=== PATIENT | female | born 1955 | race African-American/Black ===

== ENCOUNTER 2018-10-30 04:30 | Emergency (ER) | payer MEDICARE, OTHER ==
[~2018-10-30] VITALS: Ht 167.6 cm; Wt 62.6 kg
--- NOTE | 2018-10-30 04:45 | NUR ---
ED Nurse Note: Patient walked in to ER c/o bilaterally pain in her wrists. AAOP x4, VSS at this time, skin is dry, intact.
[2018-10-30 04:49] VITALS: BP 197/93
[2018-10-30] MEDS ORDERED: HYDROCODON-ACE1 EA15 ORAL (05:10)
[2018-10-30] MEDS ORDERED: IBUPROFEN600 MG ORAL (05:10)
--- NOTE | 2018-10-30 05:10 | Emergency Room Report ---
History of Present Illness General Chief Complaint: Pain Source: Patient, Significant Other Present Illness HPI Is a 63-year-old female with a history of diabetes but no longer medication. She also has long-standing neuropathy with numbness to her fingers. Mostly on the left side. She presents with chief complaint of increasing hand pain and numbness. This been ongoing for about a week. No trauma. No fever chills but no nausea no vomiting. Nothing made it better. Nothing made it worse. Allergies: Coded Allergies: PENICILLINS (Verified Allergy, Unknown, 10/30/18) Patient History Past Medical History: see triage record, old chart reviewed, DM, HTN Past Surgical History: other Pertinent Family History: none Social History: Reports: smoking Now: No Immunizations: other Reviewed Nursing Documentation: PMH: Agreed; PSxH: Agreed Nursing Documentation-PM Past Medical History: No Stated History Hx Hypertension: Yes Hx Diabetes: Yes Review of Systems Eye: Denies: eye pain, blurred vision ENT: Denies: ear pain, nose congestion, throat swelling Respiratory: Denies: cough, shortness of breath Cardiovascular: Denies: chest pain, palpitations Gastrointestinal: Denies: abdominal pain, diarrhea, nausea, vomiting Musculoskeletal: Denies: back pain, joint pain Skin: Denies: rash Neurological: Denies: headache, numbness Endocrine: Denies: increased thirst, increased urine Hematologic/Lymphatic: Denies: easy bruising All Other Systems: negative except mentioned in HPI Physical Exam Vital Signs Date Time Temp Pulse Resp B/P (MAP) Pulse Ox O2 Delivery O2 Flow Rate FiO2 10/30/18 04:33 98.2 63 16 197/93 100 Room Air vitals with high blood pressure Sp02 EP Interpretation: reviewed, normal General Appearance: well appearing, no apparent distress, alert Head: normocephalic, atraumatic Eyes: bilateral eye PERRL, bilateral eye EOMI ENT: hearing grossly normal, normal pharynx Neck: full range of motion, supple, no meningismus Respiratory: chest non-tender, lungs clear, normal breath sounds Cardiovascular #1: regular rate, rhythm, no murmur Gastrointestinal: normal bowel sounds, non tender, no mass, no organomegaly, no bruit, non-distended Musculoskeletal: back normal, gait/station normal, normal range of motion Psychiatric: mood/affect normal Skin: warm/dry Medical Decision Making Diagnostic Impression: Primary Impression: Peripheral neuropathy Additional Impression: Hypertension Qualified Codes: I10 - Essential (primary) hypertension ER Course Patient present with neuropathy. No evidence of any trauma. She has no chest pain complaint. We'll discharge home. Last Vital Signs Date Time Temp Pulse Resp B/P (MAP) Pulse Ox O2 Delivery O2 Flow Rate FiO2 10/30/18 04:49 98.2 16 197/93 100 Room Air 10/30/18 04:33 63 Status: improved Disposition: HOME, SELF-CARE Condition: Stable Scripts Ibuprofen* (MOTRIN*) 600 Mg Tablet 600 MG ORAL THREE TIMES A DAY, #30 TAB 0 Refills Prov: Jairon Kovacs MD 10/30/18 Hydrocodone/Acetaminophen 5-325* (HYDROCODONE/ACETAMINOPHEN 5-325*) 1 Each Tablet 1 TAB ORAL Q6H PRN for For Pain, #15 TAB 0 Refills Prov: Jairon Kovacs MD 10/30/18 Referrals: NOT CHOSEN IPA/,REFERRING (PCP) Additional Instructions: Follow-up with your doctor in 7 days. Return if symptom worsen. Jairon Kovacs MD October 30, 2018 05:10
[2018-10-30 05:15] VITALS: BP 197/93
[2018-10-30] MEDS ORDERED: HYDROcodone/Acetamin 5/325 tab ORAL ONE (05:15)
--- NOTE | 2018-10-30 05:15 | NUR ---
ED Nurse Note: Pt cleared by health care Provider for discharge. DC instructions/prescription was given and explained to pt and verbalized understanding of teachings. All medical deviecs such as ID band removed. Pt is AAO x4, ambulatory and left with all personal belongings.
== END 2018-10-30 05:15 | disposition home or self-care (01) ==
LOC: EMR 04:58
DX: G62.9 Polyneuropathy, unspecified (principal); I10 Essential (primary) hypertension; E11.9 Type 2 diabetes mellitus without complications; Z88.0 Allergy status to penicillin
CPT/HCPCS: 99282

== ENCOUNTER 2018-12-03 10:35 | Emergency (ER) | payer MEDICARE, OTHER ==
[~2018-12-03] VITALS: Ht 167.6 cm; Wt 63.0 kg
[~2018-12-03 10:35] MED LIST: HYDROCODON-ACE1 EA15 ORAL; IBUPROFEN600 MG ORAL
[2018-12-03] MEDS ORDERED: TRAMADOL HCL50 MG ORAL (10:59)
[2018-12-03] MEDS ORDERED: BENAZEPRIL HCL10 MG ORAL (10:59)
[2018-12-03] MEDS ORDERED: ATENOLOL25 MG ORAL (10:59)
[2018-12-03] MEDS ORDERED: GABAPENTIN800 MG ORAL (10:59)
[2018-12-03] MEDS ORDERED: AMLODIPINE BESY10 MG ORAL (10:59)
[2018-12-03] MEDS ORDERED: ATORVASTATIN CA40 MG ORAL (10:59)
--- NOTE | 2018-12-03 11:05 | NUR ---
ED Nurse Note: PT WALKED IN TO ER TODAY FROM HOME. AOX4. PT C/O BILATERAL HAND PAIN, 8/10, NUMBNESS, AND TINGLING X LAST NIGHT. PT STATES SHE HAS HX OF CHRONIC HAND NEUROPATHY AND IS CURRENTLY TAKING MEDICATIONS FOR IT. CIRCULATION AND SENSATION INTACT, CAP REFILL <3 SECONDS, FULL ROM OF ALL DIGITS, MUSCLE STRENGTH 5/5.
[2018-12-03 11:07] VITALS: BP 154/78
[2018-12-03] MEDS ORDERED: GABAPENTIN400 MG ORAL ×2 (12:07)
--- NOTE | 2018-12-03 12:35 | NUR ---
ED Nurse Note: PT SITTING PEACEFULLY IN CHAIR IN NAD. AOX4. PRESCRIPTION AND DISCHARGE PAPERWORK EXPLAINED TO PT. PT VERBALIZES UNDERSTANDING AND ALL QUESTIONS ANSWERED. PRESCRIPTION SENT ELECTRONICALLY TO PT'S PHARMACY. DISCHARGE PAPERWORK GIVEN TO PT AND ID WRISTBAND REMOVED. PT WALKED OUT OF ER WITH STEADY GAIT AND ALL BELONGINGS.
[2018-12-03 12:36] VITALS: BP 152/80
--- NOTE | 2018-12-04 20:21 | Emergency Room Report ---
History of Present Illness General Chief Complaint: Pain Source: Patient Present Illness HPI Patient is a 63-year-old female presented after increased pain to both wrists. Patient reports having gradual onset of pain. She reports having numbness to both hands. She states this is been going on for quite a long time. Patient reportedly is taking multiple medications for discomfort. She has been noted to be using a wrist splint to her left upper extremity. She had not been using any to her right. Patient had previous point for carpal tunnel release. She states that she is not currently a smoker. She denies prior history of hypothyroidism. She denies any fever. She denies any recent trauma. She reports having increased pain after waking up. Allergies: Coded Allergies: PENICILLINS (Verified Allergy, Unknown, 10/30/18) Patient History Past Medical History: see triage record Reviewed Nursing Documentation: PMH: Agreed; PSxH: Agreed Nursing Documentation-PMH Past Medical History: No History, Except For Hx Hypertension: Yes Hx Diabetes: Yes Review of Systems All Other Systems: negative except mentioned in HPI Physical Exam Vital Signs Date Time Temp Pulse Resp B/P (MAP) Pulse Ox O2 Delivery O2 Flow Rate FiO2 12/03/18 10:51 98.2 74 16 160/84 (109) 99 Room Air General Appearance: well appearing, no apparent distress, alert, GCS 15 Head: normocephalic, atraumatic ENT: hearing grossly normal, normal voice Neck: full range of motion, supple Respiratory: no respiratory distress, speaking full sentences Cardiovascular #1: normal inspection Gastrointestinal: normal inspection Musculoskeletal: no calf tenderness Neurologic: normal inspection, alert, oriented x3, web machine tender III-XII nml as tested, normal gait, motor weakness - Bilateral thenar muscle weakness., other - Bilateral hand numbness in a median nerve distribution Psychiatric: mood/affect normal Skin: no rash Medical Decision Making Diagnostic Impression: Primary Impression: Carpal tunnel syndrome ER Course . She presented for bilateral wrist pain. Differential diagnosis include was not limited to arthritis, carpal tunnel syndrome, peripheral neuropathy among others. Patient has a benign exam and does not appear to require any further imaging or laboratory testing at this time. Patient was noted to have what appears to be some chronic discomfort to both upper extremities. She in the past have been told that she had carpal tunnel disease and this appears to be a recurrent problem. Patient was noted to have some decreased sensation bilaterally in the median nerve distribution. No thenar muscle atrophy. Patient was given an additional wrist splint. Patient was noted to have prior wrist splint to her left upper extremity. Patient was advised to follow-up with her primary care physician for recheck. Last Vital Signs Date Time Temp Pulse Resp B/P (MAP) Pulse Ox O2 Delivery O2 Flow Rate FiO2 12/03/18 12:36 98.3 76 18 152/80 100 Room Air Status: unchanged Disposition: HOME, SELF-CARE Condition: Stable Scripts Gabapentin* (GABAPENTIN*) 400 Mg Capsule 400 MG ORAL THREE TIMES A DAY, #30 CAP 0 Refills Prov: Partha Lara MD 12/03/18 Referrals: Aleksandar Selby MD (PCP) Patient Instructions: Carpal Tunnel Syndrome Partha Lara MD Dec 04, 2018 20:21
== END 2018-12-03 12:37 | disposition home or self-care (01) ==
LOC: EMR 11:32
DX: M25.542 Pain in joints of left hand (principal); G56.00 Carpal tunnel syndrome, unspecified upper limb; G62.9 Polyneuropathy, unspecified
CPT/HCPCS: 99282

== ENCOUNTER 2019-03-30 10:19 | Emergency (ER) | payer MEDICARE, OTHER ==
[~2019-03-30] VITALS: Ht 167.6 cm; Wt 71.2 kg
[~2019-03-30 10:19] MED LIST changes: +AMLODIPINE BESY10 MG ORAL; +ATENOLOL25 MG ORAL; +ATORVASTATIN CA40 MG ORAL; +BENAZEPRIL HCL10 MG ORAL; +GABAPENTIN400 MG ORAL; +GABAPENTIN800 MG ORAL; +TRAMADOL HCL50 MG ORAL
--- NOTE | 2019-03-30 10:50 | NUR ---
ED Nurse Note: PT WALKED IN TO ER TODAY FROM HOME. AOX4. PT C/O CHRONIC LOWER BACK PAIN AND CARPAL TUNNEL PAIN. PT STATES SHE IS SEEING HER PRIMARY FOR PAIN MANAGEMENT BUT RAN OUT OF HER PAIN MEDICATION.
[2019-03-30 10:52] VITALS: BP 132/76
[2019-03-30] MEDS ORDERED: HYDROcodone/Acetamin 5/325 tab ORAL ONE (11:00)
[2019-03-30] MEDS ORDERED: Ketorolac 30mg Inj IM ONE (11:00)
[2019-03-30] MEDS ORDERED: TRAMADOL HCL50 MG ORAL (11:04)
[2019-03-30 11:07] VITALS: BP 128/74
--- NOTE | 2019-03-30 11:07 | NUR ---
Note karma in EDM - 03/30/19 at 1108 by RYAN ED Nurse Note: PT SITTING PEACEFULLY IN BED IN NAD. AOX4. PRESCRIPTIONS AND DISCHARGE PAPERWORK EXPLAINED TO PT. PT VERBALIZES UNDERSTANDING AND ALL QUESTIONS ANSWERED. PRESCRIPTIONS AND DISCHARGE PAPERWORK GIVEN TO PT AND ID WRISTBAND REMOVED. PT WALKED OUT OF ER WITH STEADY GAIT AND ALL BELONGINGS.
--- NOTE | 2019-03-30 11:07 | Emergency Room Report ---
History of Present Illness General Chief Complaint: Medication Refill Source: Patient Present Illness HPI Disclaimer: Please note that this report is being documented using [employer] technology. This can lead to erroneous entry secondary to incorrect interpretation by the dictating instrument. HPI: 63-year-old female with a history of chronic lumbosacral disc disease and chronic back pain, bilateral carpal tunnel syndrome presents for medication refill request. Patient states her back pain and wrist pain are unchanged and at their baseline. There is no new injury. She describes an aching back pain in the center of the back that does not radiate, denies urinary retention, denies fecal incontinence, denies lower extremity weakness and is able to ambulate at her baseline. She is scheduled for an MRI next week and possible preparation for surgery. Additionally, she has had carpal tunnel for years and notes chronic pain in the wrist as well as a burning sensation over the palms which is consistent with her disease. She is currently undergoing physical therapy for this. She is treated with 50 mg Ultram and states that she ran out of her prescription yesterday. She was unable to see her PMD until later in the month and is requesting a small prescription to get her through until she can see her PMD. She states she only uses them as needed. Denies any other symptoms or concerns at this time. PMH: Carpal tunnel, chronic back pain, hypertension PSH: See chart Allergies: Penicillin Social Hx: Denies drug or alcohol abuse Allergies: Coded Allergies: PENICILLINS (Verified Allergy, Unknown, 10/30/18) Nursing Documentation-PMH Hx Hypertension: Yes - hyperlipidemia Hx Diabetes: Yes Review of Systems All Other Systems: negative except mentioned in HPI Physical Exam Vital Signs Date Time Temp Pulse Resp B/P (MAP) Pulse Ox O2 Delivery O2 Flow Rate FiO2 03/30/19 10:33 98.1 70 15 136/80 (98) 97 Room Air General: Awake and alert, no acute distress HEENT: NC/AT. EOMI. Resp: Normal work of breathing Skin: Intact. No abrasions, laceration or rash over the exposed skin MSK: Normal tone and bulk. Moving all extremities. No obvious deformity. Tenderness on percussion of the volar aspect of the wrist bilaterally. No deformity. Mild limitation on flexion and extension secondary to pain but no effusion around the wrist joints. Able to flex and extend all digits of the hands. Neuro: Awake and alert. Mentating appropriately. Back/Spine: No midline tenderness in the cervical, thoracic spine. Tenderness in the lumbosacral region, no step-off, no deformity. Moderate paraspinal tenderness in the lower back Medical Decision Making Diagnostic Impression: Primary Impression: Carpal tunnel syndrome Additional Impressions: Medication refill Chronic back pain ER Course This is 63-year-old female who presents requesting a short-term prescription for Ultram to treat her chronic lower back pain and her carpal tunnel pain. Patient is in no acute distress, no new injury, physical exam is reassuring. She is calm and polite. Cures report shows regular refills monthly for Ultram 50 mg prescribed by her doctor. Last refill was 02/19/2019 for a 30-day prescription. This is consistent with her treatment schedule. She has not filled any narcotic pain medication available on the cures website since 02/19. She continues to use ibuprofen. We will give her a short prescription for 10 tablets but she is to call her PMD and her neurologist to discuss medication refills further. We discussed that the emergency department does not regularly fill chronic pain medication and that she would need to go to her PMD next time. She verbalized understanding and agreement with this treatment plan was discharged home. Last Vital Signs Date Time Temp Pulse Resp B/P (MAP) Pulse Ox O2 Delivery O2 Flow Rate FiO2 03/30/19 10:52 98.2 72 16 132/76 99 Room Air Disposition: HOME, SELF-CARE Condition: Stable Scripts Tramadol Hcl* (ULTRAM*) 50 Mg Tablet 50 MG ORAL Q6H PRN for For Pain, #10 TAB 0 Refills Prov: Tae Samano MD 03/30/19 Referrals: [facility] Patient Instructions: Medicine Refill at the Emergency Department Additional Instructions: Your evaluated in the emergency department today for back and wrist pain. Please see your doctor at the next available appointment to refill your chronic pain medications. Short course has been prescribed to you until you can see your doctor. Please follow-up on the MRI and with your neurologist to discuss emergency department visit. Follow-up with your PMD as soon as possible for medication refill and reevaluation. Return to the emergency department with any new or worsening symptoms. Tae Samano MD Mar 30, 2019 11:07
--- NOTE | 2019-03-30 11:07 | NUR ---
ED Nurse Note: PT SITTING PEACEFULLY IN BED IN NAD. AOX4. PRESCRIPTIONS AND DISCHARGE PAPERWORK EXPLAINED TO PT. PT VERBALIZES UNDERSTANDING AND ALL QUESTIONS ANSWERED. PRESCRIPTIONS AND DISCHARGE PAPERWORK GIVEN TO PT AND ID WRISTBAND REMOVED. PT WALKED OUT OF ER WITH STEADY GAIT AND ALL BELONGINGS ACCOMPANIED BY DAUGHTER.
== END 2019-03-30 11:09 | disposition home or self-care (01) ==
LOC: EMR 11:05
DX: G56.00 Carpal tunnel syndrome, unspecified upper limb (principal); G89.29 Other chronic pain; M54.9 Dorsalgia, unspecified; Z76.0 Encounter for issue of repeat prescription; E78.5 Hyperlipidemia, unspecified; E11.9 Type 2 diabetes mellitus without complications; Z88.0 Allergy status to penicillin; I10 Essential (primary) hypertension
CPT/HCPCS: 96372; 99283; J1885

== ENCOUNTER 2019-04-17 13:43 | Emergency (ER) | payer MEDICARE, OTHER ==
[~2019-04-17] VITALS: Ht 166.4 cm; Wt 72.6 kg
[2019-04-17 13:52] VITALS: BP 142/85
--- NOTE | 2019-04-17 14:08 | NUR ---
Note karma in EDM - 04/17/19 at 1412 by MAHI ED Nurse Note: Pt walked in to ED from home c/o pain on left lower leg for couple days. Denies injury/trauma on left leg, no visible signs of swelling/redness, no open wounds noted. Denies SOB. VSS
--- NOTE | 2019-04-17 14:12 | NUR ---
ED Nurse Note: Pt walked in to ED from home c/o pain on right lower leg for couple days. Denies injury/trauma on right leg, no visible signs of swelling/redness, no open wounds noted. Denies SOB. VSS
[2019-04-17] MEDS ORDERED: Tylenol #3 tab (300mg/30mg) ORAL ONE (14:30)
--- NOTE | 2019-04-17 14:49 | Emergency Room Report ---
History of Present Illness General Chief Complaint: Lower Extremity Injury Source: Medical Record Present Illness HPI * 63 YO Female presents to the ED c/o 04/09 in severity Right calf pain. Denies trauma or fall. Denies fevers, chills, bruises, open wounds or skin color changes. Allergies: Coded Allergies: PENICILLINS (Verified Allergy, Unknown, 10/30/18) Patient History Past Medical History: see triage record Past Surgical History: none Pertinent Family History: none Now: No Reviewed Nursing Documentation: PMH: Agreed; PSxH: Agreed Nursing Documentation-PMH Past Medical History: No History, Except For Hx Hypertension: Yes - hyperlipidemia Hx Diabetes: Yes Review of Systems All Other Systems: negative except mentioned in HPI Physical Exam Vital Signs Date Time Temp Pulse Resp B/P (MAP) Pulse Ox O2 Delivery O2 Flow Rate FiO2 04/17/19 13:52 98.1 83 18 142/85 (104) 98 Room Air Sp02 EP Interpretation: reviewed, normal General Appearance: no apparent distress, alert, GCS 15, non-toxic Head: normocephalic, atraumatic Eyes: bilateral eye normal inspection, bilateral eye PERRL ENT: hearing grossly normal, normal voice Neck: full range of motion Respiratory: chest non-tender, lungs clear, normal breath sounds, speaking full sentences Cardiovascular #1: regular rate, rhythm, normal capillary refill Cardiovascular #2: 2+ dorsalis pedis (R), 2+ dorsalis pedis (L) Musculoskeletal: gait/station normal, normal range of motion, tender - Right calf ttp, no swelling Neurologic: alert, oriented x3, responsive, motor strength/tone normal, sensory intact, speech normal, grossly normal Psychiatric: judgement/insight normal Skin: no rash Lymphatic: no adenopathy Medical Decision Making PA Attestation Dr. Durham is my supervising Physician whom patient management has been discussed with. Diagnostic Impression: Primary Impression: Acute leg pain Qualified Codes: M79.604 - Pain in right leg ER Course Pt. presents to the ED c/o lower extremity pain x2 days, unilateral swelling, erythema, increase in temperature. Pt recently s/p slip and fall and has been mainly bed ridden. Ddx considered but are not limited to Cellulitis, DVT, varicose vein, PAD, Venous insufficiency Vital signs: are WNL, pt. is afebrile H&PE are most consistent with [ ] ORDERS: LE duplex U/s to R/O dvt. ED INTERVENTIONS: -Tylenol # 3 DISCHARGE: At this time pt. is stable for d/c to home. Will provide printed patient care instructions, and any necessary prescriptions. Care plan and follow up instructions have been discussed with the patient prior to discharge. CT/MRI/US Diagnostic Results CT/MRI/US Diagnostic Results : Imaging Test Ordered: Venous Duplex US of the right LE Last Vital Signs Date Time Temp Pulse Resp B/P (MAP) Pulse Ox O2 Delivery O2 Flow Rate FiO2 04/17/19 13:52 98.1 83 18 142/85 (104) 98 Room Air Disposition: HOME, SELF-CARE Condition: Stable Referrals: [facility] Patient Instructions: Pain Medicine Instructions, [id number] Additional Instructions: ~ ~ An emergent medical condition has not been identified based on this patients presentation, exam and any necessary testing/imaging. The patient is determined to be stable for outpatient follow-up and management of symptoms by a primary care provider. Take any previously prescribed medications as directed. Follow up with a Primary Care Provider in 3-5 days, even if your symptoms have resolved. --Please review list of primary care clinics, if you do not already have a primary care provider Return sooner to ED if new symptoms occur, or current symptoms become worse. - Please note that this Emergency Department Report was dictated using [employer] processing specialist technology software, occasionally this can lead to erroneous entry secondary to interpretation by the dictation equipment. Sandy Earl Apr 17, 2019 14:49
--- NOTE | 2019-04-17 14:55 | NUR ---
ED Nurse Note: Vascular clinical lab assistant a bedside for venous duplex.
--- NOTE | 2019-04-17 15:00 | NUR ---
ED Nurse Note: Venous duplex results given to ERMD.
--- NOTE | 2019-04-17 15:28 | Diagnostic Imaging Report ---
Indication:Leg pain and swelling Technique: Grayscale and duplex Doppler imaging of the veins in right lower extremity performed in real time utilizing compression and augmentation. Comparison: None Findings: Duplex Doppler interrogation of the veins in right lower extremity is performed from the common femoral vein to the popliteal vein. Normal venous compressibility demonstrated throughout. No thrombus identified. Waveform analysis shows good respiratory phasicity and augmentation. Imaged calf vein are also patent. IMPRESSION: No evidence of deep venous thrombosis.
--- NOTE | 2019-04-17 15:40 | NUR ---
ER DISCHARGE NOTE: Pt is cleared to be discharged per ERMD, pt is aox4, on room air. Pt refused to sign dc instructions and refused prescription. Pt was ambulatory with steady gait, left with all belongings.
[2019-04-17] MEDS ORDERED: TYLENOL EXTRA500 MG ORAL (15:43)
== END 2019-04-17 15:40 | disposition home or self-care (01) ==
LOC: EMR 15:05
DX: M79.604 Pain in right leg (principal); E78.5 Hyperlipidemia, unspecified; E11.9 Type 2 diabetes mellitus without complications; Z88.0 Allergy status to penicillin
CPT/HCPCS: 93971; 99284

== ENCOUNTER 2020-02-04 18:02 | Inpatient (IN) | payer MEDICARE, OTHER ==
[~2020-02-04] VITALS: Ht 167.6 cm; Wt 75.7 kg
[~2020-02-04 18:02] MED LIST changes: +TYLENOL EXTRA500 MG ORAL
--- NOTE | 2020-02-04 18:31 | NUR ---
ED Nurse Note: Pt ambulated to ED from home d/t nausea and vomiting with low back pain for 3 days. Pt is AOx4, VSS, on RA, afebrile on triage. Placed on bed, no acute distress noted. Will continue to monitor.
[2020-02-04 18:33] VITALS: BP 137/87
--- NOTE | 2020-02-04 18:34 | Emergency Room Report ---
History of Present Illness General Chief Complaint: Vomiting Source: Patient Present Illness HPI Patient presents with back pain and vomiting for 3 days. She denies any diarrhea. She cannot keep down liquids at this time. Denies fevers or chills. There is no dysuria. She denies numbness down her legs. She states she has chronic back pain for which she takes tramadol. She not been able to take this for several days. Does not believe that she ate anything unusual. No vomiting blood or coffee grounds. She is having difficulty keeping down water at this time. She says this is happened to her multiple times before. She was admitted [facility] last month. She states someone mentioned about her white cells being elevated. She denies any previous cardiac problems. No sore throat, chest pain, palpitations, diarrhea, dysuria, abdominal pain, shortness of breath, rashes, depression, anxiety, visual changes, dizziness, headache. Allergies: Coded Allergies: PENICILLINS (Verified Allergy, Unknown, 10/30/18) COVID-19 Screening Contact w/high risk pt: No Experienced COVID-19 symptoms?: No COVID-19 Testing performed TAPE CALENDER: Yes - 01/13/2020 COVID-19 Screening: Negative COVID-19 COVID-19 Testing Source: oral Patient History Past Medical History: see triage record Pertinent Family History: other - persistent vomiting Social History: Denies: smoking Social History Narrative from home Reviewed Nursing Documentation: PMH: Agreed; PSxH: Agreed Nursing Documentation-PM Past Medical History: No History, Except For Hx Hypertension: Yes Hx Diabetes: Yes Review of Systems All Other Systems: negative except mentioned in HPI Physical Exam Vital Signs Date Time Temp Pulse Resp B/P (MAP) Pulse Ox O2 Delivery O2 Flow Rate FiO2 02/04/20 18:07 98.1 128 16 137/87 (104) 100 Room Air Sp02 EP Interpretation: reviewed, normal General Appearance: well appearing, no apparent distress, GCS 15, other - Unable to stop vomiting Head: normocephalic Eyes: bilateral eye normal inspection, bilateral eye PERRL, bilateral eye EOMI ENT: moist mucus membranes Neck: supple Respiratory: lungs clear, normal breath sounds Cardiovascular #1: no edema, tachycardia Cardiovascular #2: 2+ radial (R) Gastrointestinal: normal inspection, non tender, no mass, non-distended, decreased bowel sounds Genitourinary: no CVA tenderness Musculoskeletal: normal range of motion, gait/station normal, tender, other - Straight leg raise bilaterally normal Neurologic: alert, oriented x3, grossly normal Psychiatric: mood/affect normal - Slightly depressed Skin: no rash, warm/dry, normal turgor Procedures Critical Care Time Critical Care Time Total Critical Care Time: 30 min bedside evaluation and treatment excludes procedures (EKG). Reason for critical care: NSTEMI, leukocytosis, repeat evaluations, evaluation for COVID-19 Possible complications: hypotension, hypertension, MS, shock, arrhythmias, metabolic acidosis, end organ damage, respiratory failure. Interventions: Reglan, Benadryl, morphine, aspirin, Nitropaste, metoprolol, Lovenox, repeat evaluations Course: Patient presented with which she stated was recurrent problem of back pain and vomiting. Lap brian with leukocytosis. Antibiotics and CT ordered. Lab called with positive troponin. Low potassium treated. Review of EKG and discussion with patient findings. COVID-[address] nonsurgical. Addition of Lovenox. Consultations: nursing staff, admitting physician, lab Performed by: Dr. Laughlin Tolerated well condition = serious Medical Decision Making Diagnostic Impression: Primary Impression: NSTEMI (non-ST elevated myocardial infarction) Additional Impressions: Nausea & vomiting Qualified Codes: R11.2 - Nausea with vomiting, unspecified Leukocytosis Qualified Codes: D72.829 - Elevated white blood cell count, unspecified Chronic back pain Qualified Codes: M54.5 - Low back pain; G89.29 - Other chronic pain Hiatal hernia COVID-19 ruled out Hypokalemia ER Course Patient presents with intractable vomiting with lower back pain. Differential includes acute myocardial infarction, gastritis, esophagitis, gastroenteritis, pancreatitis, electrolyte imbalance amongst others. Evaluation with EKG, chest x-ray and labs. Abdomen is nonsurgical and she says this is a recurrent problem therefore imaging is not indicated at this time. Patient treated with IV hydration, Reglan, Benadryl and morphine. Patient placed on a cardiac specialist as she is tachycardic. WBC reported the ED. Abdomen is fairly soft. Still CT abdomen pelvis ordered. 1917 Lab with + troponin. ASA, metoprolol and nitroglycerine ordered. Low potassium treated. Patient tested COVID neg. Lovenox administered. Patient improved with treatment. Admitted stepdown unit. Laboratory Tests Test 8/6/20 18:40 White Blood Count 22.6 K/UL (4.8-10.8) *H Red Blood Count 4.65 M/UL (4.20-5.40) Hemoglobin 14.6 G/DL (12.0-16.0) Hematocrit 43.8 % (37.0-47.0) Mean Corpuscular Volume 94 FL (80-99) Mean Corpuscular Hemoglobin 31.5 PG (27.0-31.0) H Mean Corpuscular Hemoglobin Concent 33.4 G/DL (32.0-36.0) Red Cell Distribution Width 12.6 % (11.6-14.8) Platelet Count 486 K/UL (150-450) H Mean Platelet Volume 5.7 FL (6.5-10.1) L Neutrophils (%) (Auto) % (45.0-75.0) Lymphocytes (%) (Auto) % (20.0-45.0) Monocytes (%) (Auto) % (1.0-10.0) Eosinophils (%) (Auto) % (0.0-3.0) Basophils (%) (Auto) % (0.0-2.0) Differential Total Cells Counted 100 Neutrophils % (Manual) 80 % (45-75) H Lymphocytes % (Manual) 16 % (20-45) L Monocytes % (Manual) 4 % (1-10) Eosinophils % (Manual) 0 % (0-3) Basophils % (Manual) 0 % (0-2) Band Neutrophils 0 % (0-8) Platelet Estimate Adequate Platelet Morphology Normal Red Blood Cell Morphology Normal Prothrombin Time 11.1 SEC (9.30-11.50) Prothrombin Time INR 1.0 (0.9-1.1) Activated Partial Thromboplast Time 27 SEC (23-33) Sodium Level 141 MMOL/L (136-145) Potassium Level 3.2 MMOL/L (3.5-5.1) L Chloride Level 100 MMOL/L (98-107) Carbon Dioxide Level 30 MMOL/L (21-32) Anion Gap 11 mmol/L (5-15) Blood Urea Nitrogen 13 mg/dL (7-18) Creatinine 1.2 MG/DL (0.55-1.30) Estimated Glomerular Filtration Rate 54.9 mL/min (>60) Glucose Level 196 MG/DL (74-106) H Calcium Level 10.5 MG/DL (8.5-10.1) H Total Bilirubin 0.9 MG/DL (0.2-1.0) Aspartate Amino Transferase (AST) 29 U/L (15-37) Alanine Aminotransferase (ALT) 25 U/L (12-78) Alkaline Phosphatase 134 U/L (46-116) H Troponin I 3.649 ng/mL (0.000-0.056) Total Protein 9.7 G/DL (6.4-8.2) H Albumin 5.2 G/DL (3.4-5.0) H Globulin 4.5 g/dL Albumin/Globulin Ratio 1.2 (1.0-2.7) Lipase 85 U/L (73-393) Microbiology Date/Time Source Procedure Growth Status 02/04/20 19:30 Nasopharynx SARS-CoV-2 RdRp Gene Assay - Final Complete EKG Diagnostic Results Rate: tachycardiac Rhythm: NSR ST Segments: no acute changes Rhythm Strip Diag. Results EP Interpretation: yes Rhythm: no PVC's, no ectopy, other - Tachycardia Chest X-Ray Diagnostic Results Chest X-Ray Diagnostic Results : Chest X-Ray Ordered: Yes # of Views/Limited/Complete: 1 View Indication: Other EP Interpretation: Yes Interpretation: no consolidation, no effusion, no pneumothorax Impression: No acute disease Electronically Signed by: Electronically signed by Marcial Laughlin MD CT/MRI/US Diagnostic Results CT/MRI/US Diagnostic Results : Imaging Test Ordered: Abdomen and pelvis Impression Small sliding hiatal hernia and mild mucosal thickening in the distal esophagus which can be seen in setting of esophagitis. Last Vital Signs Date Time Temp Pulse Resp B/P (MAP) Pulse Ox O2 Delivery O2 Flow Rate FiO2 02/05/20 00:00 Room Air 02/05/20 00:00 98.7 105 18 158/95 (116) 98 Status: improved Disposition: ADMITTED INPATIENT Condition: Serious Marcial Laughlin MD Feb 04, 2020 18:34
[2020-02-04] MEDS ORDERED: DiphenhydrAMINE 50mg/ml Inj IVP ONE (18:45)
[2020-02-04] MEDS ORDERED: Morphine Sulfate 4mg/ml Inj (IV USE ONLY) IVP ONE (18:45)
[2020-02-04] MEDS ORDERED: Metoclopramide 10mg/2ml Inj IVP ONE (18:45)
[2020-02-04] MEDS ORDERED: Omnipaque-300 100ml vial INJ PRN ×2 (18:45→19:30)
--- NOTE | 2020-02-04 19:02 | NUR ---
HAND-OFF: Report given to NAVA RN.
--- NOTE | 2020-02-04 19:03 | NUR ---
ED Nurse Note: Report received from LETA Arechiga RN
[2020-02-04 19:11] LABS: HEMATOCRIT 43.8 % (37.0-47.0); HEMOGLOBIN 14.6 G/DL (12.0-16.0); MEAN CORPUSCULAR VOLUME 94 FL (80-99); PLATELET COUNT 486 K/UL (150-450); RED BLOOD COUNT 4.65 M/UL (4.20-5.40); RED CELL DISTRIBUTION WIDTH 12.6 % (11.6-14.8)
[2020-02-04 19:12] LABS: WHITE BLOOD COUNT 22.6 K/UL (4.8-10.8)
[2020-02-04 19:13] LABS: ANION GAP 11 mmol/L (5-15); BLOOD UREA NITROGEN 13 mg/dL (7-18); CALCIUM 10.5 MG/DL (8.5-10.1); CARBON DIOXIDE 30 MMOL/L (21-32); CHLORIDE 100 MMOL/L (98-107); CREATININE 1.2 MG/DL (0.55-1.30); POTASSIUM 3.2 MMOL/L (3.5-5.1); SODIUM 141 MMOL/L (136-145)
[2020-02-04 19:17] LABS: ALANINE AMINOTRANSFERASE 25 U/L (12-78); ALBUMIN 5.2 G/DL (3.4-5.0); ALBUMIN/GLOBULIN RATIO 1.2 (1.0-2.7); ALKALINE PHOSPHATASE 134 U/L (46-116); ASPARTATE AMINO TRANSFERASE 29 U/L (15-37); BILIRUBIN,TOTAL 0.9 MG/DL (0.2-1.0)
[2020-02-04] MEDS ORDERED: Metoprolol Tartrate 5mg/5ml Inj IVP STA (19:25)
[2020-02-04] MEDS ORDERED: Nitroglycerin 2% oint pkt TOPIC ONE (19:30)
--- NOTE | 2020-02-04 19:30 | NUR ---
ED Nurse Note: ERMD at bedside. Explained to the patient the need to be admitted. Rapid covid test sent
--- NOTE | 2020-02-04 20:00 | NUR ---
ED Nurse Note: Nitro bid patch applied to left chest
--- NOTE | 2020-02-04 20:08 | Diagnostic Imaging Report ---
EXAM: CT Abdomen and Pelvis With Intravenous Contrast CLINICAL HISTORY: ABD PAIN TECHNIQUE: Axial computed tomography images of the abdomen and pelvis with intravenous contrast. CTDI is 6.2 mGy and DLP is 315 mGy-cm. One or more of the following dose reduction techniques were used: automated exposure control, adjustment of the mA and/or kV according to patient size, use of iterative reconstruction technique. COMPARISON: No relevant prior studies available. FINDINGS: Lung bases: Unremarkable. Mediastinum: Small sliding hiatal hernia and mild mucosal thickening in the distal esophagus which can be seen in setting of esophagitis. Remainder of the GI tract is unremarkable in appearance. ABDOMEN: Liver: Unremarkable. Gallbladder and bile ducts: Unremarkable. Pancreas: Unremarkable. Spleen: Unremarkable. Adrenals: Unremarkable. Kidneys and ureters: Unremarkable. No obstructing stones. No hydronephrosis. Stomach and bowel: Unremarkable. PELVIS: Appendix: Normal. No findings to suggest acute appendicitis. Bladder: Unremarkable. Reproductive: Unremarkable as visualized. ABDOMEN and PELVIS: Intraperitoneal space: Unremarkable. No free air. No significant fluid collection. Bones/joints: No acute fracture. Soft tissues: Unremarkable. Vasculature: Unremarkable. Lymph nodes: Unremarkable. IMPRESSION: Small sliding hiatal hernia and mild mucosal thickening in the distal esophagus which can be seen in setting of esophagitis.
[2020-02-04 20:30] VITALS: BP 154/78
[2020-02-04] MEDS ORDERED: METFORMIN HCL500 M1 ORAL (20:31)
[2020-02-04] MEDS ORDERED: METOPROLOL SUCC25 MG ORAL (20:31)
[2020-02-04] MEDS ORDERED: ASPIRIN81 MG ORAL (20:31)
[2020-02-04] MEDS ORDERED: Enoxaparin 100mg Inj SUBQ STA (20:43)
--- NOTE | 2020-02-04 20:47 | NUR ---
ED Nurse Note: gave report to Shyanne GROVES.
--- NOTE | 2020-02-04 21:10 | NUR ---
TRANSFER TO FLOOR: Patient transferred to SDU at rm 238 via gurney with ekg monitor tech, accompanied by RN and ecological technical officer. Belongings checked and given to RN. Patient transferred safely to bed and endorsed to RN.
[2020-02-04 21:12] VITALS: BP 159/92
--- NOTE | 2020-02-04 21:12 | NUR ---
NURSE NOTES: Received patient and report from Telly Solis RN. Pt transferred from ED to SDU via gurney without incident. Patient is observed resting in bed and remains alert and oriented x4. No denies pain on assessment. Pt is on RA with an O2 saturation of 98% noted. Bilateral lower lobe breath sounds noted to be diminished upon auscultation. Pt noted to be ST on tele monitor with a HR of 103 and no s/sx of acute distress noted. R FA 22g IV catheter noted which remains asymptomatic, intact and patent. Bowel sounds noted in all four quadrants, abdomen remains soft, round and nontender. Diagnostics reviewed at bedside. Skin remains intact. Pt assisted with repositioning for comfort and safety. Fall, Aspiration and Skin precautions observed. Pt remains resting in bed; Bed remains in the lowest position with the safety wheels engaged, call light within reach, side rails up x3 and bed alarm activated. Will continue plan of care. Will continue to monitor...
[2020-02-04] MEDS ORDERED: Nitroglycerin Subl 0.4mg tab SL PRN (21:15)
[2020-02-04] MEDS ORDERED: dilTIAZem HCl 25mg/5ml Inj IV PRN (21:15)
[2020-02-04] MEDS ORDERED: Albuterol/Ipratropium 3ml neb HHN PRN (21:15)
[2020-02-04] MEDS ORDERED: Enalaprilat 2.5mg/2ml Inj IV PRN (21:15)
[2020-02-04] MEDS ORDERED: Miralax 17gm pkt ORAL PRN (21:15)
[2020-02-05] VITALS: BP 158/95
--- NOTE | 2020-02-05 01:15 | NUR ---
NURSE NOTES: Pt assisted with a bed bath, oral care and linen change. Pt tolerated care well. Bedside assessment performed, assessed pt for pain in which she currently denies. Pt repositioned for comfort and safety. VS obtained and noted to be stable at this time. Pt assisted with ambulating to restroom, UA collected as ordered. Reviewed pt records and noted pt was admitted within the past month to [facility], MRSA and VRE swabs collected per protocol and submitted to laboratory for analysis. Will await results. Fall, Aspiration and Skin precautions observed. Pt remains resting in bed; Bed remains in the lowest position with the safety wheels engaged, call light within reach, side rails up x3 and bed alarm activated. Will continue plan of care. Will continue to monitor.
[2020-02-05 01:27] LABS: APPEARANCE,URINE CLEAR; BILIRUBIN, URINE NEGATIVE (NEGATIVE); COLOR,URINE PALE YELLOW; GLUCOSE, URINE (UA) NEGATIVE (NEGATIVE); KETONES,URINE 2+ (NEGATIVE); LEUKOCYTE ESTERASE ,URINE NEGATIVE (NEGATIVE); NITRITE,URINE NEGATIVE (NEGATIVE); PH,URINE 7 (4.5-8.0); PROTEIN,URINE 2+ (NEGATIVE); UROBILINOGEN,URINE NORMAL MG/DL (0.0-1.0)
[2020-02-05 04:00] VITALS: BP 143/78
--- NOTE | 2020-02-05 04:15 | NUR ---
NURSE NOTES: Bedside assessment performed. Assessed pt for pain in which she currently denies at this time. Pt assisted with repositioning for comfort and safety. VS obtained and HR noted to be fluctuating between 104-116 with repositioning, BP remains stable at this time. Fall, Aspiration and Skin precautions observed. Pt remains resting in bed; Bed remains in the lowest position with the safety wheels engaged, call light within reach, side rails up x3 and bed alarm activated. Will continue plan of care. Will continue to monitor.
[2020-02-05 04:47] LABS: HEMATOCRIT 43.4 % (37.0-47.0); MEAN CORPUSCULAR VOLUME 96 FL (80-99); PLATELET COUNT 477 K/UL (150-450); RED BLOOD COUNT 4.51 M/UL (4.20-5.40); RED CELL DISTRIBUTION WIDTH 13.1 % (11.6-14.8); WHITE BLOOD COUNT 20.8 K/UL (4.8-10.8)
[2020-02-05 05:19] LABS: CHOLESTEROL 248 MG/DL (< 200); HDL CHOLESTEROL 52 MG/DL (40-60); TRIGLYCERIDES 143 MG/DL (30-150)
--- NOTE | 2020-02-05 05:44 | NUR ---
NURSE NOTES: Called and notified Dr Aburto regarding elevated Troponin level No chest pain noted at this time, 12 lead EKG findings and current medication No further orders at this time
--- NOTE | 2020-02-05 05:45 | NUR ---
NURSE NOTES: Yair from lab called to notify of critical lab value Troponin 9.725, previously noted to be 3.649 Will obtain 12 lead EKG and notify top former
--- NOTE | 2020-02-05 05:51 | NUR ---
NURSE NOTES: Dr Aburto called back to get additional details regarding pt condition. Order time changed on metoprolol from 09:00 to 06:00 STAT. Will carry out orders will continue to monitor.
[2020-02-05] MEDS ORDERED: Metoprolol Succinate XL 25mg tab ORAL SCH ×2 (06:00)
[2020-02-05] MEDS ORDERED: NovoLOG Insulin Flexpen SUBQ SCH (06:30)
--- NOTE | 2020-02-05 06:43 | NUR ---
NURSE NOTES: Dr Aburto called to check on pt and stated he is on his way to evaluate the patient Possible transfer for angio-will hold breakfast until he evaluates the patient.
--- NOTE | 2020-02-05 07:00 | NUR ---
NURSE NOTES: Dr Aburto present at bedside to assess patient.
--- NOTE | 2020-02-05 07:15 | NUR ---
NURSE NOTES: Orders received to start Heparin gtt and give an additional dose of PO metoprolol
[2020-02-05] MEDS ORDERED: Heparin 5000 units/ml inj IV SCH (07:17)
[2020-02-05] MEDS ORDERED: Heparin 25,000u/D5W 500ml 500 ML IV SCH (07:17)
--- NOTE | 2020-02-05 07:18 | NUR ---
NURSE HAND-OFF REPORT: Important Events on Shift: Patient Status: Serious Diet: CCHO-Med Pending Orders: Heparin drip-pending heparin drip label Pending Results/Labs:N/A Pending MD notification:N/A Dr Aburto present at bedside Latest Vital Signs: Temperature 98.2 , Pulse 112 , B/P 146 /82 , Respiratory Rate 20 , O2 SAT 96 , Room Air, O2 Flow Rate . Vital Sign Comment:No c/o CP or SOB EKG Rhythm: Sinus Tachycardia Rhythm change?: ST Elevation Notified?: Dr Lamonte PEREZ Response: Transfer to [facility] Latest Schwarz Fall Score: 70 Fall Risk: High Risk Safety Measures: Call light Within Reach, Bed Alarm Zone 2, Side Rails Side Rails x3, Bed position Low and Locked. Fall Precautions: Yellow Socks Yellow Gown Door Sign Patient Fall Education Report given to YANELI Smith.
--- NOTE | 2020-02-05 07:24 | NUR ---
NURSE NOTES: Dr. Aburto here visiting patient,patients troponin elevated,notified me patient for transfer to [facility] for cardiac catheter,Dr Aburto has been talking to [facility] I called transfer center of [facility],we were communicating each other,with Ritesh,fax needed information to [facility] per request-facesheet ,COVID test I arranged transportation for patient going to [facility]-emergency,with [facility] transportation -[facility] 808 Gave report to Matilde-study hall supervisor 0910 Patient to [facility] by [facility] ambulance,No chest pain,no nausea,no vomiting,on heparin drip Patient alert,oriented,conversant,was notified about this transfer and procedure
--- NOTE | 2020-02-05 07:24 | Cardiology Progress Note ---
Assessment/Plan Assessment/Plan [id number] stemi inferolater silent mi dm htn hyperlipid tobacco use do recurrent nausea and vomiting sith hs of same for many mon leukocytosis MR on exam await echo pen allergy med non compliance covid neg rapid in er heoarin asa bb urgent echo wati urgent transfer to [facility] for cth tx center intervention cariologist all contacted once accpeta 911 to transfer tocath lab [facility] for urgen cth Objective Last 24 Hour Vital Signs Date Time Temp Pulse Resp B/P (MAP) Pulse Ox O2 Delivery O2 Flow Rate FiO2 02/05/20 06:09 119 146/82 02/05/20 04:00 Room Air 02/05/20 04:00 98.2 97 20 143/78 (99) 99 02/05/20 03:39 117 02/05/20 00:00 Room Air 02/05/20 00:00 98.7 105 18 158/95 (116) 98 02/04/20 23:43 104 02/04/20 21:39 98.0 98 18 148/78 99 02/04/20 21:18 Room Air 02/04/20 21:12 98.6 102 18 159/92 (114) 97 02/04/20 20:30 98.1 104 18 154/78 100 Room Air 02/04/20 19:45 169/89 02/04/20 19:45 108 169/89 02/04/20 19:14 98.1 02/04/20 18:33 98.1 16 137/87 100 Room Air 02/04/20 18:33 128 16 Room Air 02/04/20 18:07 98.1 128 16 137/87 (104) 100 Room Air Intake and Output 02/04/20 02/05/20 19:00 07:00 Intake Total 200 ml Balance 200 ml Intake Oral 200 ml # Voids 3 Laboratory Tests Test 02/04/20 18:40 02/05/20 00:35 02/05/20 03:00 02/05/20 06:05 White Blood Count 22.6 K/UL (4.8-10.8) *H 20.8 K/UL (4.8-10.8) H Red Blood Count 4.65 M/UL (4.20-5.40) 4.51 M/UL (4.20-5.40) Hemoglobin 14.6 G/DL (12.0-16.0) 14.0 G/DL (12.0-16.0) Hematocrit 43.8 % (37.0-47.0) 43.4 % (37.0-47.0) Mean Corpuscular Volume 94 FL (80-99) 96 FL (80-99) Mean Corpuscular Hemoglobin 31.5 PG (27.0-31.0) H 31.0 PG (27.0-31.0) Mean Corpuscular Hemoglobin Concent 33.4 G/DL (32.0-36.0) 32.2 G/DL (32.0-36.0) Red Cell Distribution Width 12.6 % (11.6-14.8) 13.1 % (11.6-14.8) Platelet Count 486 K/UL (150-450) H 477 K/UL (150-450) H Mean Platelet Volume 5.7 FL (6.5-10.1) L 5.1 FL (6.5-10.1) L Neutrophils (%) (Auto) % (45.0-75.0) % (45.0-75.0) Lymphocytes (%) (Auto) % (20.0-45.0) % (20.0-45.0) Monocytes (%) (Auto) % (1.0-10.0) % (1.0-10.0) Eosinophils (%) (Auto) % (0.0-3.0) % (0.0-3.0) Basophils (%) (Auto) % (0.0-2.0) % (0.0-2.0) Differential Total Cells Counted 100 Neutrophils % (Manual) 80 % (45-75) H Pending Lymphocytes % (Manual) 16 % (20-45) L Pending Monocytes % (Manual) 4 % (1-10) Eosinophils % (Manual) 0 % (0-3) Basophils % (Manual) 0 % (0-2) Band Neutrophils 0 % (0-8) Platelet Estimate Adequate Pending Platelet Morphology Normal Pending Red Blood Cell Morphology Normal Prothrombin Time 11.1 SEC (9.30-11.50) 11.5 SEC (9.30-11.50) Prothromb Time International Ratio 1.0 (0.9-1.1) 1.0 (0.9-1.1) Activated Partial Thromboplast Time 27 SEC (23-33) 33 SEC (23-33) Sodium Level 141 MMOL/L (136-145) Potassium Level 3.2 MMOL/L (3.5-5.1) L Chloride Level 100 MMOL/L (98-107) Carbon Dioxide Level 30 MMOL/L (21-32) Anion Gap 11 mmol/L (5-15) Blood Urea Nitrogen 13 mg/dL (7-18) Creatinine 1.2 MG/DL (0.55-1.30) Estimat Glomerular Filtration Rate 54.9 mL/min (>60) Glucose Level 196 MG/DL (74-106) H Calcium Level 10.5 MG/DL (8.5-10.1) H Total Bilirubin 0.9 MG/DL (0.2-1.0) Aspartate Amino Transf (AST/SGOT) 29 U/L (15-37) Alanine Aminotransferase (ALT/SGPT) 25 U/L (12-78) Alkaline Phosphatase 134 U/L (46-116) H Troponin I 3.649 ng/mL (0.000-0.056) 9.725 ng/mL (0.000-0.056) Total Protein 9.7 G/DL (6.4-8.2) H Albumin 5.2 G/DL (3.4-5.0) H Globulin 4.5 g/dL Albumin/Globulin Ratio 1.2 (1.0-2.7) Lipase 85 U/L (73-393) Urine Color Pale yellow Urine Appearance Clear Urine pH 7 (4.5-8.0) Urine Specific [place] 1.010 (1.005-1.035) Urine Protein 2+ (NEGATIVE) H Urine Glucose (UA) Negative (NEGATIVE) Urine Ketones 2+ (NEGATIVE) H Urine Blood 2+ (NEGATIVE) H Urine Nitrite Negative (NEGATIVE) Urine Bilirubin Negative (NEGATIVE) Urine Urobilinogen Normal MG/DL (0.0-1.0) Urine Leukocyte Esterase Negative (NEGATIVE) Urine RBC 2-4 /HPF (0 - 2) H Urine WBC 0-2 /HPF (0 - 2) Urine Squamous Epithelial Cells Few /LPF (NONE/OCC) Urine Bacteria Few /HPF (NONE) C-Reactive Protein, Quantitative 1.5 mg/dL (0.00-0.90) H Triglycerides Level 143 MG/DL (30-150) Cholesterol Level 248 MG/DL (< 200) H LDL Cholesterol 165 mg/dL (<100) H HDL Cholesterol 52 MG/DL (40-60) Cholesterol/HDL Ratio 4.8 (3.3-4.4) H Thyroid Stimulating Hormone (TSH) 1.143 uiU/mL (0.358-3.740) POC Whole Blood Glucose 180 MG/DL (74-106) H Microbiology Date/Time Source Procedure Growth Status 02/04/20 19:30 Nasopharynx SARS-CoV-2 RdRp Gene Assay - Final Complete Yonas Aburto MD Feb 05, 2020 07:24
[2020-02-05] MEDS ORDERED: Metoprolol Tartrate 5mg/5ml Inj IVP SCH (07:30)
--- NOTE | 2020-02-05 07:30 | NUR ---
NURSE NOTES: Report received from Briana Lee RN.Pt awake,alert noted no resp distress on RA, denies anyc/o pain or vomitting at this time,S-Tach on the monitor,skin warm and dry with IV site to RFA with Heparin drip running at 12u /kg/hr,bolus 0f 25,000 units IV given by mine shifter RN,SR up x2 HOB elevated bed lock in lowest position,,DR Aburto here in SDU with orders to transfer pt to [facility] for higher level of care.
[2020-02-05 07:48] LABS: HEMATOCRIT 45.2 % (37.0-47.0); MEAN CORPUSCULAR VOLUME 94 FL (80-99); PLATELET COUNT 477 K/UL (150-450); RED BLOOD COUNT 4.79 M/UL (4.20-5.40); RED CELL DISTRIBUTION WIDTH 12.4 % (11.6-14.8); WHITE BLOOD COUNT 19.4 K/UL (4.8-10.8)
[2020-02-05 07:54] VITALS: BP 140/96
[2020-02-05 09:00] VITALS: BP 142/98
[2020-02-05] MEDS ORDERED: Aspirin Baby 81mg ORAL SCH (09:00)
[2020-02-05] MEDS ORDERED: Benazepril 10mg tab ORAL SCH (09:00)
--- NOTE | 2020-02-05 09:10 | NUR ---
NURSE NOTES: Pt discharged and out of the unit per se awake,alert oriented in no acute distress denies any c/o pain or discomfort,accompanied by an RN and ambulance personnel wirh Heparin drip to RFA ,IV site intact ,no infiltration noted. Pt will go to [facility] electroplating laborer for Cardiac cath,kept NPO.studio control operator Bev Morales give report to [facility] receiving nurse.
--- NOTE | 2020-02-05 09:51 | NUR ---
NURSE NOTES: YANELI Jiménez from [facility] lab called to get report-report given,fax stat echo result to [id number] no. provided by her
--- NOTE | 2020-02-05 10:22 | Diagnostic Imaging Report ---
Procedure: XRAY Chest 1v Reason for study: Chest pain Comparison films: None. FINDINGS: A single one view chest is obtained. Vascularity is normal. The lung ca are clear bilaterally. Cardiac and mediastinal silhouette are within normal limits. CP angles are sharp. The bony thorax appear unremarkable. IMPRESSION: NO ACUTE CARDIOPULMONARY DISEASE.
--- NOTE | 2020-02-05 12:15 | Consultation ---
DATE OF CONSULTATION: 02/05/2020 CARDIOLOGY CONSULTATION CONSULTING PHYSICIAN: Yonas Aburto MD. REFERRING PHYSICIANS: Esteban Worley MD. and Malathi Turner MD. REASON FOR REFERRAL: Abnormal cardiac enzymes. HISTORY OF PRESENT ILLNESS: This is a 64-year-old female with history of recurrent bouts of nausea and vomiting. Apparently, she presented to the emergency room at [facility]. She has had this recurrent bouts on prior occasions and she started having again over the past few days nausea and vomiting, not able to keep her pills down. She absolutely denies any pain, pressure, tightness, heaviness or squeezing sensation in her chest. There is no shortness of breath. There is no PND. There is no orthopnea. Denies any palpitation. Denies any dizziness or lightheadedness. She was admitted through the emergency room because of these symptoms, was seen by the emergency room physician, had a non-ST elevation myocardial infarction as the first diagnosis, was admitted to the hospital. I was called approximately one hour ago regarding the request for consultation for the patient whose troponin was up to 9. An EKG had been done and was repeated by my recommendation and both of which have shown new changes on the EKG with some ST elevation in inferolateral leads. On my urgent arrival to the hospital, the patient absolutely denies any chest pain again. There is no shortness of breath right now. She does not have any black or bloody vomitus or stools. These episodes of nausea and vomiting she has had on several occasions. She is now admitted to the hospital. PAST MEDICAL HISTORY: Positive for diabetes, high blood pressure, high cholesterol. No prior history of heart attack. No cancer or stroke. No hepatitis or tuberculosis. No asthma or emphysema. No ulcers. No kidney problems, liver problems, thyroid problems or anemia. She does have a history of arthritis. No liver problems, HIV, AIDS, or blood clots. ALLERGIES: She is allergic to penicillin. SOCIAL HISTORY: She smokes, she states up to two cigarettes per day, up to about approximately one month ago. She smokes a lot of marijuana. Denies any other drug use. She does drink wine she states. REVIEW OF SYSTEMS: GASTROINTESTINAL: Positive as mentioned above. GENITOURINARY: Negative. PULMONARY: Negative. CONSTITUTIONAL: She has some sweats. NEUROLOGICAL: Negative. PHYSICAL EXAMINATION: GENERAL: Shows to be a middle-aged female, in no respiratory distress. NECK: Supple. No jugular venous distention. No abdominojugular reflux noted. LUNGS: Clear to auscultation and percussion. CARDIAC: Regular rhythm, has borderline tachycardia. Holosystolic regurgitant murmur is noted. ABDOMEN: Soft, nontender. Positive bowel sounds. EXTREMITIES: There is no edema. LABORATORY VALUES: EKG initially in the emergency room shows no significant ST elevation and subsequent EKG at 3 o'clock and again I believe 6 o'clock this morning shows ST-segment elevation of approximately 1 mm or so in the inferolateral wall, II, III, aVF and V5 and V6. Sinus rhythm. Blood tests, white count was 22 at the time of admission, went down to 20.6; hemoglobin 14; and platelet count of 477,000. Sodium last night 141, potassium 3.2, chloride 100, bicarb 30, BUN of 13, creatinine 1.2, and glucose of 196. Calcium was 10.5. Alkaline phosphatase 134. Troponin was 3.6 and subsequent 9.75. CRP of 1.5. Total cholesterol of 248, LDL of 165, HDL of 52. TSH of 1.4. Lipase of 85. Her blood sugar was 180. INR of 1, PTT of 30. Her urinalysis shows 2 to 4 wbc's. She did have a CT scan of her abdomen and pelvis that showed lungs unremarkable. Small sliding hiatal hernia with mucosal thickening in the distal esophagus, can be in the setting of esophagitis. Liver unremarkable. Gallbladder unremarkable. Pancreas unremarkable. Spleen unremarkable. Adrenal unremarkable. Stomach and bowel unremarkable. Pelvis normal. Appendix, no findings to suggest appendicitis. Bladder and reproductive organs unremarkable. Nothing abnormal was otherwise found. There are no chest x-rays noted. ASSESSMENT AND PLAN: 1. ST-elevation myocardial infarction. 2. Recurrent bouts of nausea and vomiting. 3. Diabetes mellitus. 4. Hypertension. 5. Hyperlipidemia. 6. Tobacco use disorder. 7. Marijuana use. This patient was seen urgently in the process of transferring her to [facility] for urgent cardiac catheterization. She never had any chest pain despite the ST-elevation initially or at the present time. Because of her diabetes certainly myocardial infarction needs to be in the differential. [facility] has been contacted. cardiac cath technologist at [facility] has been contacted. The patient will be started on heparin now that we are sure there is no bleeding in her GI tract. Aspirin has already been initiated last night. Brilinta will be administered. The patient already had [id number] rapid test that was negative in the emergency room, nothing as far symptoms of coughing or fevers to suggest otherwise. The patient's blood pressure has been high. Beta-blockers have been added to decrease the tachycardia and she will be started on some nitro paste and heparin will be started as well. Await acceptance for transfer to [facility] on urgent basis. Yonas Aburto M.D. DR: CASTILLO JOB#: [id number] CC:
--- NOTE | 2020-02-05 16:04 | NUR ---
CASE MANAGEMENT:REVIEW 64 YR OLD FEMALE WALKED IN TO ER` SI: POSITIVE TROPONIN. HYPOKALEMIA 98.0 128 16 137/87 100% ON RA WBC+22.6 TROPONIN(+)3.649 IS: CT ABD/PELVIS CHEST XRAY COVID 19 : TO STEP DOWN UNIT PLAN: TRANSFER TO HIGHER LEVEL OF CARE ~ [facility]
--- NOTE | 2020-02-05 16:43 | History & Physical ---
History and Physical History & Physicial patient was transferred to [facility] prior to my visit at [facility], patient was seen at [facility] after cardiac cath. MD Meir Caldwell Payam MD Feb 05, 2020 16:43
--- NOTE | 2020-02-07 14:53 | Discharge Summary ---
Discharge Summary Discharge Summary _ DATE OF ADMISSION: 02/05/2020 DATE OF DISCHARGE: 02/05/2020 ADMITTING MD: Dr. Esteban Worley CONSULTANTS: Dr. Yonas Aburto [facility] HOSPITAL COURSE: The patient is a 64-year-old female with history of recurrent bouts of nausea and vomiting. She was unable to keep her pills down. She denies any pain, pressure, chest tightness, heaviness or squeezing sensation in the chest. There was no shortness of breath. No PND. No orthopnea. No palpitation. No dizziness or lightheadedness. She was admitted through emergency room. She had a non-ST elevated MT. Initial troponin was 3.649. Patient was admitted to stepdown unit. Cardiac enzymes were monitored. Repeat troponin went up to 9. She was evaluated by ob gyn. Repeat EKG showed ST elevation in inferolateral leads. CAT scan of the abdomen and pelvis showed unremarkable lungs. Small hiatal hernia with mucosal thickening in the distal esophagus. Liver unremarkable. Gallbladder unremarkable. Pancreas unremarkable. Spleen unremarkable. Adrenals unremarkable. Stomach and bowel are unremarkable. Appendix no findings to suggest appendicitis. Bladder and reproductive organs unremarkable. Patient was started on heparin drip. Rapid COVID 19 testing was negative. Patient was given beta-clara to decrease tachycardia. She was given Nitropaste. She was then transferred to [facility] for higher level of care. FINAL DIAGNOSES: ST elevated MT Recurrent bouts of nausea and vomiting Diabetes mellitus Hypertension Hyperlipidemia Tobacco use disorder Marijuana use DISPOSITION: Patient was transferred to [facility]. I have been assigned to complete a discharge summary on this account, I was not involved with the patient's management.--ADIEL Woodruff Jacqueline Robles NP Feb 07, 2020 14:53
== END 2020-02-05 09:10 | disposition short-term general hospital (02) | DRG 282 ==
LOC: EMR 19:10 → 2W 19:31 → EDBEDREQ 20:41
DX: I21.19 ST elevation (STEMI) myocardial infarction involving other coronary artery of inferior wall (principal); R11.2 Nausea with vomiting, unspecified; E11.9 Type 2 diabetes mellitus without complications; E78.5 Hyperlipidemia, unspecified; I10 Essential (primary) hypertension; F17.200 Nicotine dependence, unspecified, uncomplicated; F12.90 Cannabis use, unspecified, uncomplicated; K44.9 Diaphragmatic hernia without obstruction or gangrene; G89.29 Other chronic pain; M54.5 Low back pain; E87.6 Hypokalemia; Z88.0 Allergy status to penicillin
CPT/HCPCS: 36415; 71045; 74177; 80053; 80061; 81003; 82962; 83690; 84443; 84484; 85007; 85025; 85610; 85730; 86140; 87081; 93005; 93306; 94664; 96361; 96372; 96374; 96375; 99291; J1815; J2765; J7030; J8499; U0002

== ENCOUNTER 2020-05-25 19:57 | Emergency (ER) | payer MEDICARE, OTHER ==
[~2020-05-25] VITALS: Ht 165.1 cm; Wt 67.1 kg
[~2020-05-25 19:57] MED LIST changes: +ASPIRIN81 MG ORAL; +METFORMIN HCL500 M1 ORAL; +METOPROLOL SUCC25 MG ORAL
--- NOTE | 2020-05-25 20:28 | Emergency Room Report ---
History of Present Illness General Chief Complaint: Nausea Source: Patient Present Illness HPI Patient presents with 1 day of nausea and vomiting. She denies vomiting blood. She cannot keep any thing down. She is eating a lot of chocolates and also had some THC last night. She denies any pain. She denies fevers or chills. There is no chest pain. She denies palpitations. There is no dizziness. Is a recurrent problem for this patient. The last time her nausea vomiting was controlled but she had a NSTEMI. She was admitted to the hospital. Patient denies exposure to COVID-19 positive contacts. No sore throat, palpitations, diarrhea, dysuria, abdominal pain, shortness of breath, joint pain, rashes, depression, anxiety, visual changes. The patient has a history of CVA and hypertension. Apparently her daughter has the same problem when she uses THC. Allergies: Coded Allergies: PENICILLINS (Verified Allergy, Unknown, 10/30/18) COVID-19 Screening Contact w/high risk pt: No Experienced COVID-19 symptoms?: No COVID-19 Testing performed MAINTAINER OPERATOR: No Patient History Past Medical History: see triage record Social History: Reports: drug use; Denies: smoking - THC former smoker Social History Narrative Lives with her daughter Reviewed Nursing Documentation: PMH: Agreed; PSxH: Agreed Nursing Documentation-PMH Past Medical History: No History, Except For Hx Cardiac Problems: Yes - CVA 01/2020 Hx Hypertension: Yes Hx Diabetes: Yes Hx Cancer: No Hx Gastrointestinal Problems: No Hx Neurological Problems: Yes Hx Numbness: Yes Review of Systems All Other Systems: negative except mentioned in HPI Physical Exam Vital Signs Date Time Temp Pulse Resp B/P (MAP) Pulse Ox O2 Delivery O2 Flow Rate FiO2 05/25/20 20:01 98.8 100 22 199/108 (138) 96 Room Air Sp02 EP Interpretation: reviewed, normal General Appearance: well appearing, no apparent distress, GCS 15, other - Retching Head: normocephalic, atraumatic Eyes: bilateral eye PERRL, bilateral eye EOMI, bilateral eye Scleral Injection ENT: moist mucus membranes Neck: supple Respiratory: lungs clear, normal breath sounds Cardiovascular #1: regular rate, rhythm Cardiovascular #2: 2+ radial (R) Gastrointestinal: normal inspection, normal bowel sounds, non tender, no mass, non-distended Musculoskeletal: back normal, normal range of motion, gait/station normal Neurologic: alert, oriented x3, grossly normal Psychiatric: mood/affect normal Skin: no rash, warm/dry Medical Decision Making Diagnostic Impression: Primary Impression: Nausea and vomiting in adult patient ER Course The patient presents with nausea and vomiting. Differential includes gastritis, gastroenteritis, THC hyperemesis, pancreatitis amongst others. As the patient had a non-STEMI last presentation this needs to be excluded. Patient evaluated with EKG, chest x-ray and labs. Patient treated with IV hydration, Pepcid, Reglan and Benadryl. EKG left atrial enlargement trachea hypertrophy rate 100. Chest x-ray no infiltrates. Labs remarkable except for negative troponin, minimally elevated white count, glucose and alkaline phosphatase. Patient tolerating oral intake at this time. She complains of a headache and Tylenol is administered. Discussed findings and treatment plan with patient. No apparent emergency at this time. Patient stable for outpatient observation and treatment. Laboratory Tests Test 05/25/20 20:45 White Blood Count 11.5 K/UL (4.8-10.8) H Red Blood Count 5.39 M/UL (4.20-5.40) Hemoglobin 16.5 G/DL (12.0-16.0) H Hematocrit 50.3 % (37.0-47.0) H Mean Corpuscular Volume 93 FL (80-99) Mean Corpuscular Hemoglobin 30.7 PG (27.0-31.0) Mean Corpuscular Hemoglobin Concent 32.9 G/DL (32.0-36.0) Red Cell Distribution Width 12.7 % (11.6-14.8) Platelet Count 431 K/UL (150-450) Mean Platelet Volume 6.0 FL (6.5-10.1) L Neutrophils (%) (Auto) % (45.0-75.0) Lymphocytes (%) (Auto) % (20.0-45.0) Monocytes (%) (Auto) % (1.0-10.0) Eosinophils (%) (Auto) % (0.0-3.0) Basophils (%) (Auto) % (0.0-2.0) Differential Total Cells Counted 100 Neutrophils % (Manual) 78 % (45-75) H Lymphocytes % (Manual) 19 % (20-45) L Monocytes % (Manual) 3 % (1-10) Eosinophils % (Manual) 0 % (0-3) Basophils % (Manual) 0 % (0-2) Band Neutrophils 0 % (0-8) Platelet Estimate Adequate Platelet Morphology Normal Red Blood Cell Morphology Normal Prothrombin Time 10.8 SEC (9.30-11.50) Prothrombin Time INR 1.0 (0.9-1.1) Activated Partial Thromboplast Time 21 SEC (23-33) L Sodium Level 136 MMOL/L (136-145) Potassium Level 3.5 MMOL/L (3.5-5.1) Chloride Level 97 MMOL/L (98-107) L Carbon Dioxide Level 27 MMOL/L (21-32) Anion Gap 13 mmol/L (5-15) Blood Urea Nitrogen 13 mg/dL (7-18) Creatinine 1.1 MG/DL (0.55-1.30) Estimated Glomerular Filtration Rate > 60 mL/min (>60) Glucose Level 181 MG/DL (74-106) H Calcium Level 10.1 MG/DL (8.5-10.1) Total Bilirubin 0.5 MG/DL (0.2-1.0) Aspartate Amino Transferase (AST) 17 U/L (15-37) Alanine Aminotransferase (ALT) 21 U/L (12-78) Alkaline Phosphatase 137 U/L (46-116) H Troponin I 0.000 ng/mL (0.000-0.056) Total Protein 9.8 G/DL (6.4-8.2) H Albumin 5.1 G/DL (3.4-5.0) H Globulin 4.7 g/dL Albumin/Globulin Ratio 1.1 (1.0-2.7) Lipase 108 U/L (73-393) EKG Diagnostic Results Rate: normal Rhythm: NSR ST Segments: no acute changes - Atrial enlargement Rhythm Strip Diag. Results EP Interpretation: yes Rhythm: NSR, no PVC's, no ectopy Last Vital Signs Date Time Temp Pulse Resp B/P (MAP) Pulse Ox O2 Delivery O2 Flow Rate FiO2 05/25/20 22:53 98.9 92 20 141/91 96 Room Air Status: improved Disposition: HOME, SELF-CARE Condition: Improved Scripts Promethazine HCl (Promethegan) 25 Mg Supp.rect 25 MG RECTAL Q8HR PRN for Nausea & Vomiting, #6 SUPP Prov: Truman,Marcial MD 05/25/20 Promethazine Hcl* (PHENERGAN*) 25 Mg Tablet 25 MG ORAL Q8HR PRN for Nausea & Vomiting, #10 TAB 1 Refill Prov: Marcial Laughlin MD 05/25/20 Famotidine* (Pepcid 20mg tablet*) 20 Mg Tablet 20 MG ORAL DAILY, #20 TAB 0 Refills Prov: Marcial Laughlin MD 05/25/20 Marcial Laughlin MD May 25, 2020 20:28
[2020-05-25 20:30] VITALS: BP 141/91
[2020-05-25] MEDS ORDERED: DiphenhydrAMINE 50mg/ml Inj IVP ONE (20:30)
[2020-05-25] MEDS ORDERED: Metoclopramide 10mg/2ml Inj IVP ONE (20:30)
[2020-05-25 20:58] LABS: HEMATOCRIT 50.3 % (37.0-47.0); HEMOGLOBIN 16.5 G/DL (12.0-16.0); MEAN CORPUSCULAR VOLUME 93 FL (80-99); PLATELET COUNT 431 K/UL (150-450); RED BLOOD COUNT 5.39 M/UL (4.20-5.40); RED CELL DISTRIBUTION WIDTH 12.7 % (11.6-14.8); WHITE BLOOD COUNT 11.5 K/UL (4.8-10.8)
[2020-05-25 21:20] LABS: ANION GAP 13 mmol/L (5-15); BLOOD UREA NITROGEN 13 mg/dL (7-18); CALCIUM 10.1 MG/DL (8.5-10.1); CARBON DIOXIDE 27 MMOL/L (21-32); CHLORIDE 97 MMOL/L (98-107); CREATININE 1.1 MG/DL (0.55-1.30); POTASSIUM 3.5 MMOL/L (3.5-5.1); SODIUM 136 MMOL/L (136-145)
[2020-05-25 21:25] LABS: ALANINE AMINOTRANSFERASE 21 U/L (12-78); ALBUMIN 5.1 G/DL (3.4-5.0); ALBUMIN/GLOBULIN RATIO 1.1 (1.0-2.7); ALKALINE PHOSPHATASE 137 U/L (46-116); ASPARTATE AMINO TRANSFERASE 17 U/L (15-37); BILIRUBIN,TOTAL 0.5 MG/DL (0.2-1.0)
[2020-05-25] MEDS ORDERED: PHENERGAN SUPP25 MG RECTAL (22:19)
[2020-05-25] MEDS ORDERED: PROMETHAZINE HC25 M1 ORAL (22:19)
[2020-05-25] MEDS ORDERED: FAMOTIDINE20 MG ORAL (22:19)
[2020-05-25 22:53] VITALS: BP 141/91
--- NOTE | 2020-05-26 15:55 | Diagnostic Imaging Report ---
EXAM: XR Abdomen, 2 Views CLINICAL HISTORY: ABD PAIN TECHNIQUE: Frontal view of the abdomen/pelvis with upright view of the abdomen. COMPARISON: None. FINDINGS: Intraperitoneal space: No free air. Gastrointestinal tract: Unremarkable. No dilation. Bones/joints: Unremarkable. IMPRESSION: Nonspecific gas pattern.
--- NOTE | 2020-05-26 15:56 | Diagnostic Imaging Report ---
EXAM: XR Chest, 1 View CLINICAL HISTORY: ABD PAIN TECHNIQUE: Frontal view of the chest. COMPARISON: 02/04/2020. FINDINGS: Lungs: Unremarkable. No consolidation. Pleural space: Unremarkable. No pneumothorax. Heart: Unremarkable. No cardiomegaly. Mediastinum: Unremarkable. Bones/joints: Degenerative disease of the shoulders. Vasculature: Atherosclerotic disease of aorta. IMPRESSION: No acute cardiopulmonary disease.
--- NOTE | 2020-05-27 17:51 | Cardiology Report ---
APPROVED REPORT EKG Measurement Heart [id number] <Conclusion> Normal sinus rhythm Possible Left atrial enlargement Left ventricular hypertrophy Cannot rule out Septal infarct, age undetermined Abnormal ECG
== END 2020-05-25 22:55 | disposition home or self-care (01) ==
LOC: EMR 20:30
DX: R11.2 Nausea with vomiting, unspecified (principal); I10 Essential (primary) hypertension; E11.9 Type 2 diabetes mellitus without complications; Z86.73 Personal history of transient ischemic attack (TIA), and cerebral infarction without residual deficits; Z88.0 Allergy status to penicillin
CPT/HCPCS: 36415; 71045; 74018; 80053; 83690; 84484; 85007; 85025; 85610; 85730; 93005; 96374; 96375; 99284; J1200; J2765; J7040; S0028